=== PATIENT | female | born 1970 | race Caucasian/White ===

== ENCOUNTER → 2017-12-01 09:08 | Outpatient (CLI) | payer OTHER ==
[2017-12-01 09:53] LABS: BASOPHILS 0.5 % (0-2); EOSINOPHILS 3.1 % (0-7); HEMOGLOBIN 15.6 g/dL (12-16); IMMATURE GRANULOCYTES 0.1 % (0-5); LYMPHOCYTES 38.7 % (15-50); MCH 34.4 pg (26.0-34.0); MCHC 34.7 g/dL (31.0-37.0); MCV 99.1 fL (80.0-100.0); MEAN PLATELET VOLUME 10.4 fL (7.4-10.4); MONOCYTES 8.8 % (2-11); NEUTROPHILS 48.8 % (40-80); PLATELET COUNT 294 10x3/uL (130-400); RBC 4.54 10x6/uL (4.00-5.40); RDW 13.5 % (11.5-14.5); WBC 7.4 10x3/uL (4.8-10.8)
[2017-12-01 11:28] LABS: ERYTHROCYTE SEDIMENTATION RATE 1 mm/hr (0-20)
== END | disposition home or self-care (01) ==
LOC: D.LAB 09:08 → D.NM 10:15
PROVIDERS: Orthopaedic Surgery
DX: M25.562 Pain in left knee (principal)

== ENCOUNTER → 2017-12-25 15:33 | Outpatient (CLI) | payer OTHER | END | disposition home or self-care (01) | LOC: D.MRI 15:33 | DX: M54.5 Low back pain (principal) ==